=== PATIENT | male | born 1965 | race Caucasian/White ===

== ENCOUNTER 2016-08-18 10:29 | Outpatient (CLI) | payer OTHER ==
[~2016-08-18] VITALS: Ht 170.2 cm; Wt 80.9 kg
[2016-08-18 10:31] VITALS: BP 118/69; PULSE 69; RESP 16; Ht 170.2 cm; Wt 80.9 kg
--- NOTE | 2016-08-18 14:27 | PN ---
Date/Time of Note Date/Time of Note DATE: 08/18/16 TIME: 14:20 Assessment/Plan Assessment/Plan Assessment/Plan [facility] Progress Note Date of Service: 08/18/16 Today's Impression & Plan: Overall doing well post op without major issues. No major wound problems. With above assessment, I've recommended the following for today: 1. F/u with PCP 2. F/u with us prn Thank you again for your great care of this very pleasant patient and wonderful family. If there are any questions, please feel free to call me at [phone]. TOTAL VISIT TIME: 20 minutes of which more than half was spent in [id number] discussion with the patient, possibly including family, as well as coordination of care between multiple physicians and providers. Disclaimer: Inadvertent spelling or grammatical errors are likely due to EHR/ dictation software use and do not reflect on the overall quality of patient care. Updated Clinical Summary: The patient is a very pleasant 51-year-old gentleman with previous history of L5 -S1 disk disease and a few-year history of right upper quadrant pain, admitted with more pain on the right upper quadrant as well as elevated liver function and injury parameters. S/p an otherwise uncomplicated laparoscopic cholecystectomy on 07/26/16 at [facility] with findings of acute on chronic cholecystitis. Final path showed chronic cholecystitis with cholelithiasis. COMORBIDITIES: 1. A few-year history of right upper quadrant pain. 2. L5-S1 disk disease, status post surgery. 3. BMI 25.4. 4. S/p an otherwise uncomplicated laparoscopic cholecystectomy with lysis of adhesions on 07/26/16 at [facility] with findings of acute on chronic cholecystitis. Final path showed chronic cholecystitis with cholelithiasis. Subjective: No major events or complaints; no abd pain and under control with medications; no n/v/d; no sob or cp; + flatus; + BM and normal; + activity Objective: Vitals: See below Exam: GENERAL: On exam, the patient was sitting in a chair and appeared to be comfortable and in no acute distress. ABDOMEN: Soft, nontender and nondistended. Incisions are clean, dry and intact without any evidence of erythema, edema, discharge, or hernia. There are no peritoneal signs or guarding. SKIN: Skin appears to be pink and feels warm to touch. NEUROLOGIC: Patient is awake, alert, and follows commands appropriately. Exam/Review of Systems Vital Signs Vitals Vital Signs Date Time Temp Pulse Resp B/P Pulse Ox O2 Delivery O2 Flow Rate FiO2 08/18/16 10:31 98.0 69 16 118/69 97 Room Air RAQUEL RAMÍREZ M.D. August 18, 2016 14:27
== END 2016-08-18 16:52 | disposition home or self-care (01) ==
LOC: HPC 10:29
PROVIDERS: ATTEND Transplant Surgery
DX: Z48.89 Encounter for other specified surgical aftercare (principal); Z90.49 Acquired absence of other specified parts of digestive tract
CPT/HCPCS: G0463